=== PATIENT | female | born 1950 | race Caucasian/White ===

== ENCOUNTER 2021-02-22 10:14 | Day surgery (SDC) | payer MEDICARE ==
[2021-02-21 16:03] LABS: BASOPHILS # (AUTO) 0.1 X10'3 (0-0.2); BASOPHILS % (AUTO) 0.8 % (0-1); EOSINOPHILS # (AUTO) 0.1 X10'3 (0-0.9); EOSINOPHILS % (AUTO) 1.4 % (0-6); HEMATOCRIT 52.6 % (35.0-45.0); HEMOGLOBIN 17.6 g/dl (12.0-16.0); LYMPHOCYTES % (AUTO) 24.6 % (21-51); MEAN CORPUSCULAR HEMOGLOBIN 30.8 PG (27.0-31.0); MEAN CORPUSCULAR HGB CONC 33.4 g/dL (33.0-36.5); MEAN CORPUSCULAR VOLUME 92.3 FL (78-98); MEAN PLATELET VOLUME 7.7 FL (7.4-10.4); MONOCYTES # (AUTO) 0.6 X10'3 (0-0.9); MONOCYTES % (AUTO) 7.5 % (2-12); NEUTROPHILS # (AUTO) 5.3 X10'3 (1.8-7.7); NEUTROPHILS % (AUTO) 65.7 % (42-75); PLATELET COUNT 224 X10'3 (140-440); RED CELL DISTRIBUTION WIDTH 13.3 % (11.5-14.5); WHITE BLOOD COUNT 8.1 X10'3 (4.5-11.0)
[2021-02-21 16:04] LABS: ALBUMIN 3.9 G/DL (3.4-5.0); ANION GAP 11 (8-16); BLOOD UREA NITROGEN 19 MG/DL (7-18); CALCIUM 9.1 MG/DL (8.5-10.1); CHLORIDE 104 MMOL/L (99-107); CREATININE 0.73 MG/DL (0.40-0.90); GLUCOSE 103 MG/DL (70-104); POTASSIUM 4.3 MMOL/L (3.5-5.1); SODIUM 144 MMOL/L (135-145); TOTAL CARBON DIOXIDE 28.9 MMOL/L (24-32); eGFR 79 ML/MIN
[2021-02-21 16:09] LABS: PARTIAL THROMBOPLASTIN TIME 26 SECONDS (22-32)
[2021-02-22] VITALS (8 sets, daily range): BP systolic 134–150; BP diastolic 63–74
[~2021-02-22] VITALS: Ht 162.6 cm; Wt 89.9 kg
[2021-02-22] MEDS ORDERED: LORazepam 0.5 MG tablet PO PRN (10:30)
[2021-02-22] MEDS ORDERED: diphenhydrAMINE 25mg capsule PO PRN (10:30)
[2021-02-22] MEDS ORDERED: normal saline 1,000 ML IV SCH (10:30)
[2021-02-22] MEDS ORDERED: LIDOcaine/PRILOcaine 5gm cream TP ONE (10:35)
[2021-02-22] MEDS ORDERED: LISI-790 PO (11:10)
[2021-02-22] MEDS ORDERED: CHOL10006 PO (11:14)
[2021-02-22] MEDS ORDERED: CART1TAB4 PO (11:14)
[2021-02-22] MEDS ORDERED: IBUP-2697 PO (11:14)
[2021-02-22] MEDS ORDERED: LIDOcaine 1% (10mg/ml)w/preservative injection 20ml MDV ONE (11:53)
[2021-02-22] MEDS ORDERED: midazolam 1 mg/ML 2ml injection ONE (11:53)
[2021-02-22] MEDS ORDERED: verapamil 2.5 mg/ml inj IV ONE (11:53)
[2021-02-22] MEDS ORDERED: nitroGLYCERIN-Tridil 50MG/D5W 250 ML IV ONE (11:53)
[2021-02-22] MEDS ORDERED: iohexol 350MG/ML 100ml bottle IV ONE (11:53)
[2021-02-22] MEDS ORDERED: fentaNYL/PF 50MCG/1 ML 2ML syringe ONE (11:53)
[2021-02-22] MEDS ORDERED: heparin 1,000unit/ml 10ml vial 10 ML ONE (11:53)
[2021-02-22] MEDS ORDERED: iohexol 350 MG/ML 50ML vial IV ONE ×2 (11:53→13:52)
[2021-02-22] MEDS ORDERED: hydrALAZINE 20mg/ml inj. IV ONE (13:44)
[2021-02-22 13:47] LABS: ISTAT HGB ART 16.7 g/dl (12.0-16.0); ISTAT Hct ART 49 %PCV (35-48); ISTAT O2 SATURATION ARTERIAL 98 % (95-98); ISTAT SOURCE ART
--- NOTE | 2021-02-22 14:45 | NUR ---
pt requested bedpan, bedpan placed, pt stated " I can't void, but my bladder is full", pt requested catheter, catheter placed without difficulty, obtained 400C after catheter placed.
--- NOTE | 2021-02-22 17:40 | NUR ---
emptied catheter bag, pt had another 300ml, took catheter out without complications.
--- NOTE | 2021-02-22 18:30 | NUR ---
pt voided in toilet.
== END 2021-02-22 19:00 | disposition home or self-care (01) ==
LOC: SSTAY O 10:14
PROVIDERS: ATTEND Internal Medicine Cardiovascular Disease
DX: R06.02 Shortness of breath (principal); R53.83 Other fatigue; I25.10 Atherosclerotic heart disease of native coronary artery without angina pectoris; I25.82 Chronic total occlusion of coronary artery; E78.5 Hyperlipidemia, unspecified; I10 Essential (primary) hypertension; E11.9 Type 2 diabetes mellitus without complications; M16.11 Unilateral primary osteoarthritis, right hip; M19.09 Primary osteoarthritis, other specified site; F17.211 Nicotine dependence, cigarettes, in remission; E66.9 Obesity, unspecified; Z68.33 Body mass index [BMI] 33.0-33.9, adult; Z79.899 Other long term (current) drug therapy; Z90.710 Acquired absence of both cervix and uterus; Z98.890 Other specified postprocedural states; Z98.51 Tubal ligation status; Z88.8 Allergy status to other drugs, medicaments and biological substances; Z82.49 Family history of ischemic heart disease and other diseases of the circulatory system
CPT/HCPCS: 36415; 76937; 80048; 82803; 85014; 85025; 85610; 85730; 93005; 93460; 99152; 99153; C1769; C1894; J0360; J1644; J2001; J2250; J3010; Q9967; A4620; A5120; J3490

== ENCOUNTER 2024-07-29 06:53 | Day surgery (SDC) | payer MEDICARE ==
[~2024-07-29] VITALS: Ht 154.9 cm; Wt 89.6 kg
[2024-07-29] VITALS (14 sets, daily range): BP systolic 119–174; BP diastolic 61–96; PULSE 68–77; RESP 16; TEMP 97.5; O2SAT 92–95
[~2024-07-29 06:53] MED LIST: CART1TAB4 PO; CHOL10006 PO; IBUP-2697 PO; LISI5TAB22 PO
[2024-07-29 07:45] LABS: BASOPHILS % (AUTO) 0.6 % (0-1); EOSINOPHILS # (AUTO) 0.1 X10'3 (0-0.9); EOSINOPHILS % (AUTO) 1.5 % (0-6); HEMATOCRIT 50.5 % (35.0-45.0); HEMOGLOBIN 16.9 g/dl (12.0-16.0); LYMPHOCYTES # (AUTO) 1.7 X10'3 (1.1-4.8); LYMPHOCYTES % (AUTO) 21.7 % (21-51); MEAN CORPUSCULAR HEMOGLOBIN 31.3 PG (27.0-31.0); MEAN CORPUSCULAR HGB CONC 33.5 g/dL (33.0-36.5); MEAN CORPUSCULAR VOLUME 93.6 FL (78-98); MEAN PLATELET VOLUME 7.3 FL (7.4-10.4); MONOCYTES # (AUTO) 0.6 X10'3 (0-0.9); MONOCYTES % (AUTO) 7.8 % (2-12); NEUTROPHILS # (AUTO) 5.2 X10'3 (1.8-7.7); NEUTROPHILS % (AUTO) 68.4 % (42-75); PLATELET COUNT 221 X10'3 (140-440); RED CELL DISTRIBUTION WIDTH 14.2 % (11.5-14.5); WHITE BLOOD COUNT 7.7 X10'3 (4.5-11.0)
[2024-07-29] MEDS ORDERED: MAGN400C PO (07:52)
[2024-07-29] MEDS ORDERED: METF-900 PO (07:52)
[2024-07-29] MEDS ORDERED: IBUP-2417 PO (07:52)
[2024-07-29] MEDS ORDERED: ACET-1025 PO (07:52)
[2024-07-29] MEDS ORDERED: LISI2.5T14 PO (07:52)
[2024-07-29] MEDS ORDERED: VITE1000C PO (07:52)
[2024-07-29] MEDS ORDERED: ACET-812 PO (07:52)
[2024-07-29 07:55] LABS: APTT 25 SECONDS (22-32); PROTHROMBIN TIME 10.3 SECONDS (9.0-12.0)
[2024-07-29 08:00] LABS: ALBUMIN 3.7 G/DL (3.4-5.0); ANION GAP 11 (8-16); BLOOD UREA NITROGEN 15 MG/DL (7-18); BUN/CREATININE RATIO 23.8 (10.0-20.0); CHLORIDE 104 MMOL/L (99-107); CREATININE 0.63 MG/DL (0.40-0.90); GLUCOSE 173 MG/DL (70-104); POTASSIUM 3.8 MMOL/L (3.5-5.1); SODIUM 141 MMOL/L (135-145); TOTAL CARBON DIOXIDE 25.8 MMOL/L (24-32); eCRCL 58 ML/MIN; eGFR > 90 ML/MIN
[2024-07-29] MEDS ORDERED: midazolam 1 mg/ML 2ml injection ONE ×3 (10:03→11:21)
[2024-07-29] MEDS ORDERED: verapamil 2.5 mg/ml inj IV ONE (10:03)
[2024-07-29] MEDS ORDERED: fentaNYL/PF 50MCG/1 ML 2ML syringe ONE (10:03)
[2024-07-29] MEDS ORDERED: LIDOcaine 1% (10mg/ml) 2ml vial ONE (10:03)
[2024-07-29] MEDS ORDERED: iohexol 350MG/ML 100ml bottle IV ONE (10:04)
[2024-07-29] MEDS ORDERED: heparin 1,000unit/ml 10ml vial 10 ML ONE (10:04)
[2024-07-29] MEDS ORDERED: nitroGLYCERIN 500mcg/5mL D5W 5 ML IV ONE (10:19)
[2024-07-29] MEDS ORDERED: iohexol 350 MG/ML 50ML vial IV ONE (10:19)
[2024-07-29] MEDS ORDERED: diphenhydrAMINE 50 mg/ml inj ONE (10:53)
[2024-07-29] MEDS ORDERED: LIDOcaine 1% 30ml preserv. free vial ONE (10:59)
[2024-07-29] MEDS ORDERED: hydrALAZINE 20mg/ml inj. ONE (11:10)
[2024-07-29] MEDS ORDERED: HYDROmorphone 1 mg/ml syringe ONE (11:13)
[2024-07-29] MEDS ORDERED: HYDROcodone/acetaminophen 10/325mg tab PO PRN (13:35)
[2024-07-29] MEDS: HYDROcodone/acetaminophen 5mg/325mg tablet PO PRN (13:49)
[2024-07-29] MEDS: normal saline 1000ml 1,000 ML IV SCH (13:52)
[2024-07-29] MEDS ORDERED: ACETYLCYSTEINE 200 MG/1 ML 4 ML ORAL SOLUTION PO SCH (20:00)
== END 2024-07-29 18:55 | disposition home or self-care (01) ==
LOC: SSTAY O 06:53
PROVIDERS: ATTEND Internal Medicine Cardiovascular Disease
DX: I25.10 Atherosclerotic heart disease of native coronary artery without angina pectoris (principal); I49.3 Ventricular premature depolarization; I11.9 Hypertensive heart disease without heart failure; E11.9 Type 2 diabetes mellitus without complications; E78.5 Hyperlipidemia, unspecified; E66.9 Obesity, unspecified; Z79.84 Long term (current) use of oral hypoglycemic drugs; Z79.899 Other long term (current) drug therapy; Z90.710 Acquired absence of both cervix and uterus; Z90.89 Acquired absence of other organs; Z98.890 Other specified postprocedural states; Z68.37 Body mass index [BMI] 37.0-37.9, adult; Z82.3 Family history of stroke; Z82.49 Family history of ischemic heart disease and other diseases of the circulatory system
CPT/HCPCS: 36415; 80048; 82948; 85025; 85610; 85730; 93005; 93458; 99152; 99153; A4314; A4615; A6258; A6402; C1725; C1894; J0360; J1170; J1200; J1644; J2001; J2250; J3010; J3490; J7030; Q9967; Z7610; 76937; A6449